=== PATIENT | male | born 1960 | race Caucasian/White ===

== ENCOUNTER 2019-07-27 11:04 | Inpatient (IN) | payer OTHER ==
[2019-07-27 12:25] VITALS: BMI 26.3
--- NOTE | 2019-07-27 12:56 | HP ---
CIWA Score Nausea/Vomitin-No Nausea/No Vomiting Muscle Tremors: 4-Moderate,w/Arms Extend Anxiety: 3 Agitation: 2 Paroxysmal Sweats: 1-Minimal Palms Moist Orientation: 0-Oriented Tacttile Disturbances: 0-None Auditory Disturbances: 0-None Visual Disturbances: 0-None Headache: 2-Mild CIWA-Ar Total Score: 12 - Admission Criteria OASAS Guidelines: Admission for Medically Managed Detox: Requires at least one of the followin. CIWA greater than 12 2. Seizures within the past 24 hours 3. Delirium tremens within the past 24 hours 4. Hallucinations within the past 24 hours 5. Acute intervention needed for co occurring medical disorder 6. Acute intervention needed for co occurring psychiatric disorder 7. Severe withdrawal that cannot be handled at a lower level of care (continued vomiting, continued diarrhea, abnormal vital signs) requiring intravenous medication and/or fluids 8. Admitting History and Physical - Admission Chief Complaint: " I want to get clean from alcohol. I am a methadone patient at [facility]." History of Present Illness: 59 year old male with opiate dependence on methadone program at [facility] but on voluntary detox. He also has alsochol dependence with withdrawals. His methadone dose there is 15mg. He admits that he is again using heroin 1 bag of heroin intranasally everyday now. He admits to relapsing for that. He is also [id number] beers daily and had a blackout 1 month ago. He has been in detox 3 times, the last one 1 year ago. He denies seizures upon withdrawal. Urine tox positive for MOP, MTD, and FEN. Brethalyzer was 0.oo but last use was yesterday afternoon therefore most likely out of his system. PMH: HCV+ but not yet treated. Psurg: None excep hernia repair Psych: Depression on no medications Patient is domiciled with sister. He feels he has support systems in place for recovery. - Smoking History Smoking history: Current every day smoker Have you smoked in the past 12 months: Yes Aproximately how many cigarettes per day: 7 Admission ROS [facility] Allergies/Adverse Reactions: Allergies Allergy/AdvReac Type Severity Reaction Status Date / Time No Known Allergies Allergy Verified 07/27/19 12:36 Exam Limitations: No Limitations - Ebola screening Have you traveled outside of the country in the last 21 days: No Have you had contact with anyone from an Ebola affected area: No Have you been sick,other than usual withdrawal symptoms: No Do you have a fever: No - Review of Systems Constitutional: Diaphoresis, Changes in sleep EENT: reports: No Symptoms Reported Respiratory: reports: No Symptoms reported Cardiac: reports: No Symptoms Reported GI: reports: No Symptoms Reported : reports: No Symptoms Reported Musculoskeletal: reports: No Symptoms Reported Integumentary: reports: No Symptoms Reported Neuro: reports: Headache Endocrine: reports: No Symptoms Reported Hematology: reports: No Symptoms Reported Psychiatric: reports: Judgement Intact, Orientated x3, Agitated, Anxious Other Systems: Reviewed and Negative Patient History - Patient Medical History Hx Asthma: No Hx Chronic Obstructive Pulmonary Disease (COPD): No Hx Cardiac Disorders: No Hx Hypertension: No Hx Seizures: No Hx Diabetes: No Hx Gastrointestinal Disorders: No Hx Genitourinary Disorders: No Hx Sexually Transmitted Disorders: No Hx Renal Disease (ESRD): No Hx Depression: Yes Hx Suicide Attempt: No Hx Schizophrenia: No - Patient Surgical History Past Surgical History: Yes Hx Neurologic Surgery: No Hx Cataract Extraction: No Hx Cardiac Surgery: No Hx Lung Surgery: No Hx Breast Surgery: No Hx Breast Biopsy: No Hx Abdominal Surgery: Yes (hernia repair) Hx Appendectomy: No Hx Cholecystectomy: No Hx Genitourinary Surgery: No Hx Section: No Hx Orthopedic Surgery: No Other Surgical History: Patint had mass removed from chest as a child - PPD History Previous Implant?: Yes Documented Results: Negative w/o proof Implanted On Prior [facility] Admission?: No Date: 02/11/19 (done at [facility]) Results: negative PPD to be Administered?: Yes - Smoking Cessation Smoking history: Current every day smoker Have you smoked in the past 12 months: Yes Aproximately how many cigarettes per day: 7 Hx Chewing Tobacco Use: No Initiated information on smoking cessation: Yes 'Breaking Loose' booklet given: 07/27/19 - Substances abused Heroin Substance route: Inhalation Frequency: 1-2 times per week Amount used: 1 bag Age of first use: 15 Date of last use: 07/26/19 Alcohol Substance route: Oral Frequency: Daily Amount used: 12 cans of Budweiser Age of first use: 17 Date of last use: 07/26/19 Admission Physical Exam BHS - Vital Signs Vital Signs: Vital Signs - 24 hr 07/27/19 12:21 Temperature 97.8 F Pulse Rate 88 Respiratory 11 Rate Blood Pressure 139/84 - Physical General Appearance: Yes: Mild Distress, Irritable, Sweating, Anxious HEENTM: Yes: EOMI, Hearing grossly Normal, Normal ENT Inspection, Normocephalic , Normal Voice, OLMAN, Pharynx Normal, Tm's normal Respiratory: Yes: Chest Non-Tender, Lungs Clear, Normal Breath Sounds, No Respiratory Distress, No Accessory Muscle Use Neck: Yes: No masses,lesions,Nodules, Supple, Trachea in good position Breast: Yes: Within Normal Limits Cardiology: Yes: Regular Rhythm, S1, S2, Tachycardia Abdominal: Yes: Non Tender, Soft, Increased Bowel Sounds, Protuberent, Tenderness (right upper quadrant). 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 NML intact, Fully Oriented, Alert, Motor Strength 5/5, Normal Mood/Affect, Normal Response Integumentary: Yes: Normal Color, Warm Lymphatic: Yes: Within Normal Limits - Diagnostic (1) Alcohol dependence with withdrawal Current Visit: Yes Status: Acute (2) Hepatitis C virus infection Current Visit: Yes Status: Acute (3) Opioid use disorder, mild, in early remission, on maintenance therapy Current Visit: Yes Status: Acute Cleared for Admission [facility] - Detox or Rehab [facility] Level of Care: Medically Managed Detox Regimen/Protocol: Librium Screened but not Admitted - Documentation of Visit Screened but not Admitted: No Breathalyzer - Breathalyzer Breathalyzer: 0 (last used yesterday) Urine Drug Screen - Test Device Lot number: [id number] Expiration date: 01/28/21 - Control Is test valid?: Yes - Results Drug screen NEGATIVE: No Urine drug screen results: FEN-Fentanyl, MOP-Opiates, MTD-Methadone Inpatient Rehab Admission - Rehab Decision to Admit Inpatient rehab admission?: No
[2019-07-27] MEDS ORDERED: chlordiazePOXIDE HCL 25 MG CAPSULE PO PRN (13:05)
[2019-07-27] MEDS ORDERED: MAGNESIUM HYDROX 2400MG/30ML ORAL SUSPENSION 30 ML CUP PO PRN (13:05)
[2019-07-27] MEDS ORDERED: IBUPROFEN 400 MG TABLET (FP) PO PRN (13:05)
[2019-07-27] MEDS ORDERED: BISMUTH SUBSALICYLATE 524 MG/30 ML UD PO PRN (13:05)
[2019-07-27] MEDS ORDERED: ACETAMINOPHEN 325 MG TABLET (FP) PO PRN (13:05)
[2019-07-27] MEDS ORDERED: MAGNESIUM CITRATE 300 ML BOTTLE PO PRN (13:05)
[2019-07-27] MEDS ORDERED: hydrOXYzine PAMOATE 25 MG CAPSULE (FP) PO PRN (13:05)
[2019-07-27] MEDS ORDERED: MAG HYDROX/AL HYDROX/SIMETH 30 ML UNIT-DOSE CUP PO PRN (13:05)
[2019-07-27] MEDS ORDERED: MENTHOL/PHENOL 1 EACH UD MM PRN (13:05)
[2019-07-27] MEDS: chlordiazePOXIDE HCL 25 MG CAPSULE PO SCH ×3 (14:12→22:24)
[2019-07-27] MEDS: NICOTINE 7 MG/24 HOURS TOPICAL PATCH TD SCH (14:12)
[2019-07-27 16:59] LABS: HEMATOCRIT 38.6 % (35.4-49); HEMOGLOBIN 13.2 GM/dL (11.7-16.9); MCH 34.3 pg (25.7-33.7); MCHC 34.1 g/dl (32.0-35.9); MEAN CELL VOLUME 100.7 fl (80-96); MEAN PLT VOLUME 13.4 fl (7.5-11.1); PLATELET COUNT 56 K/MM3 (134-434); RBC 3.83 M/mm3 (4.00-5.60); RDW 13.8 % (11.9-15.9); WHITE BLOOD COUNT 5.8 K/mm3 (4.0-10.0)
[2019-07-27 17:12] LABS: ALBUMIN 3.2 g/dl (3.4-5.0); BILIRUBIN,TOTAL 0.7 mg/dL (0.2-1); BLOOD UREA NITROGEN 10.4 mg/dL (7-18); CALCIUM 8.7 mg/dL (8.5-10.1); CREATININE 0.9 mg/dL (0.55-1.3); POTASSIUM 3.5 mmol/L (3.5-5.1)
[2019-07-27] MEDS: THIAMINE HCL 100 MG TABLET (FP) PO SCH (22:24)
[2019-07-27] MEDS: MELATONIN 5 MG TABLETS PO PRN (22:24)
[2019-07-28] MEDS: chlordiazePOXIDE HCL 25 MG CAPSULE PO SCH ×2 (05:18→10:01)
[2019-07-28] MEDS: METHADONE HCL 10 MG TABLET PO SCH (10:01)
[2019-07-28] MEDS: PRENATAL VITAMINS W/ FOLIC ACID TABLET (FP) PO SCH (10:01)
[2019-07-28] MEDS: NICOTINE 7 MG/24 HOURS TOPICAL PATCH TD SCH (10:01)
[2019-07-28] MEDS ORDERED: METHADONE HCL 10 MG TABLET PO ONE (10:47)
--- NOTE | 2019-07-28 10:57 | PN ---
[facility] CIWA - CIWA Score Nausea/Vomitin-No Nausea/No Vomiting Muscle Tremors: 4-Moderate,w/Arms Extend Anxiety: 3 Agitation: 2 Paroxysmal Sweats: 1-Minimal Palms Moist Orientation: 0-Oriented Tacttile Disturbances: 0-None Auditory Disturbances: 0-None Visual Disturbances: 1-Very Mild Sensitivity Headache: 0-None Present CIWA-Ar Total Score: 11 S Progress Note (SOAP) Subjective: 59 years old male admitted on 07/27/19 for alcohol withdrawal sx management treating with librium detox regiment feeling ok today ambulating on hallway ate breakfast in day room social with peers patient is motivated to maintain sober Objective: 07/28/19 10:59 Vital Signs Temperature 97.1 F L 07/28/19 09:02 Pulse Rate 74 07/28/19 09:02 Respiratory Rate 18 07/28/19 09:02 Blood Pressure 108/74 07/28/19 09:02 O2 Sat by Pulse Oximetry (%) Laboratory Last Values WBC 5.8 K/mm3 (4.0-10.0) 07/27/19 12:50 RBC 3.83 M/mm3 (4.00-5.60) L 07/27/19 12:50 Hgb 13.2 GM/dL (11.7-16.9) 07/27/19 12:50 Hct 38.6 % (35.4-49) 07/27/19 12:50 MCV 100.7 fl (80-96) H 07/27/19 12:50 MCH 34.3 pg (25.7-33.7) H 07/27/19 12:50 MCHC 34.1 g/dl (32.0-35.9) 07/27/19 12:50 RDW 13.8 % (11.9-15.9) 07/27/19 12:50 Plt Count 56 K/MM3 (134-434) L 07/27/19 12:50 MPV 13.4 fl (7.5-11.1) H 07/27/19 12:50 Sodium 138 mmol/L (136-145) 07/27/19 12:50 Potassium 3.5 mmol/L (3.5-5.1) 07/27/19 12:50 Chloride 106 mmol/L (98-107) 07/27/19 12:50 Carbon Dioxide 26 mmol/L (21-32) 07/27/19 12:50 Anion Gap 7 MMOL/L (8-16) L 07/27/19 12:50 BUN 10.4 mg/dL (7-18) 07/27/19 12:50 Creatinine 0.9 mg/dL (0.55-1.3) 07/27/19 12:50 Est GFR (CKD-EPI)AfAm 108.73 07/27/19 12:50 Est GFR (CKD-EPI)NonAf 93.82 07/27/19 12:50 Random Glucose 125 mg/dL (74-106) H 07/27/19 12:50 Calcium 8.7 mg/dL (8.5-10.1) 07/27/19 12:50 Total Bilirubin 0.7 mg/dL (0.2-1) 07/27/19 12:50 AST 110 U/L (15-37) H 07/27/19 12:50 ALT 119 U/L (13-61) H 07/27/19 12:50 Alkaline Phosphatase 115 U/L (45-117) 07/27/19 12:50 Total Protein 8.0 g/dl (6.4-8.2) 07/27/19 12:50 Albumin 3.2 g/dl (3.4-5.0) L 07/27/19 12:50 RPR Titer Nonreactive (NONREACTIVE) 07/27/19 12:50 lab noted 07/28/19 11:11 ast elevation patient agrees to take methadone 10mg po instead of 11 mg that [facility] pharmacy can not accommodate patient agrees to take ativan detox regimen Assessment: 07/28/19 11:13 alcohol withdrawal Plan: ativan regiment
[2019-07-28] MEDS ORDERED: LORazepam 1 MG TABLET PO PRN (11:26)
[2019-07-28] MEDS ORDERED: FLU VACCINE QUAD 60 MCG/0.5 ML (MDV 19-20) IM ONE (12:00)
[2019-07-28] MEDS: ACETAMINOPHEN 325 MG TABLET (FP) PO PRN (12:23)
[2019-07-28] MEDS: LORazepam 1 MG TABLET PO SCH ×2 (13:59→22:04)
[2019-07-28] MEDS: NICOTINE POLACRILEX 2 MG GUM BUC PRN (17:35)
[2019-07-28] MEDS: THIAMINE HCL 100 MG TABLET (FP) PO SCH (22:04)
[2019-07-28] MEDS: MELATONIN 5 MG TABLETS PO PRN (22:04)
[2019-07-29] MEDS ORDERED: chlordiazePOXIDE HCL 25 MG CAPSULE PO SCH (05:00)
[2019-07-29] MEDS: LORazepam 0.5 MG TABLET PO SCH ×4 (05:50→22:28)
[2019-07-29] MEDS: NICOTINE 7 MG/24 HOURS TOPICAL PATCH TD SCH (10:04)
[2019-07-29] MEDS: METHADONE HCL 10 MG TABLET PO SCH (10:04)
[2019-07-29] MEDS: PRENATAL VITAMINS W/ FOLIC ACID TABLET (FP) PO SCH (10:04)
--- NOTE | 2019-07-29 11:31 | PN ---
[facility] CIWA - CIWA Score Nausea/Vomitin-Mild Nausea/No Vomiting Muscle Tremors: 2 Anxiety: 2 Agitation: 2 Paroxysmal Sweats: 1-Minimal Palms Moist Orientation: 0-Oriented Tacttile Disturbances: 0-None Auditory Disturbances: 0-None Visual Disturbances: 1-Very Mild Sensitivity Headache: 0-None Present CIWA-Ar Total Score: 9 S Progress Note (SOAP) Subjective: 59 years old male admitted on 07/21/19 for alcohol withdrawal sx management treating with ativan detox regiment feeling ok today ate breakfast in day room social with peers less tremor mild anxitey Objective: 07/29/19 11:35 Vital Signs Temperature 97.0 F L 07/29/19 08:32 Pulse Rate 93 H 07/29/19 08:32 Respiratory Rate 20 07/29/19 08:32 Blood Pressure 114/74 07/29/19 08:32 O2 Sat by Pulse Oximetry (%) Laboratory Last Values WBC 5.8 K/mm3 (4.0-10.0) 07/27/19 12:50 RBC 3.83 M/mm3 (4.00-5.60) L 07/27/19 12:50 Hgb 13.2 GM/dL (11.7-16.9) 07/27/19 12:50 Hct 38.6 % (35.4-49) 07/27/19 12:50 MCV 100.7 fl (80-96) H 07/27/19 12:50 MCH 34.3 pg (25.7-33.7) H 07/27/19 12:50 MCHC 34.1 g/dl (32.0-35.9) 07/27/19 12:50 RDW 13.8 % (11.9-15.9) 07/27/19 12:50 Plt Count 56 K/MM3 (134-434) L 07/27/19 12:50 MPV 13.4 fl (7.5-11.1) H 07/27/19 12:50 Sodium 138 mmol/L (136-145) 07/27/19 12:50 Potassium 3.5 mmol/L (3.5-5.1) 07/27/19 12:50 Chloride 106 mmol/L (98-107) 07/27/19 12:50 Carbon Dioxide 26 mmol/L (21-32) 07/27/19 12:50 Anion Gap 7 MMOL/L (8-16) L 07/27/19 12:50 BUN 10.4 mg/dL (7-18) 07/27/19 12:50 Creatinine 0.9 mg/dL (0.55-1.3) 07/27/19 12:50 Est GFR (CKD-EPI)AfAm 108.73 07/27/19 12:50 Est GFR (CKD-EPI)NonAf 93.82 07/27/19 12:50 Random Glucose 125 mg/dL (74-106) H 07/27/19 12:50 Calcium 8.7 mg/dL (8.5-10.1) 07/27/19 12:50 Total Bilirubin 0.7 mg/dL (0.2-1) 07/27/19 12:50 AST 110 U/L (15-37) H 07/27/19 12:50 ALT 119 U/L (13-61) H 07/27/19 12:50 Alkaline Phosphatase 115 U/L (45-117) 07/27/19 12:50 Total Protein 8.0 g/dl (6.4-8.2) 07/27/19 12:50 Albumin 3.2 g/dl (3.4-5.0) L 07/27/19 12:50 RPR Titer Nonreactive (NONREACTIVE) 07/27/19 12:50 lab noted low plt discontinue motrin ast elevation ativan detox regimen 07/29/19 11:36 Assessment: 07/29/19 11:36 alcohol withdrawal Plan: ativan regiment
[2019-07-29] MEDS: THIAMINE HCL 100 MG TABLET (FP) PO SCH (22:27)
[2019-07-30] MEDS ORDERED: chlordiazePOXIDE HCL 10 MG CAPSULE PO PRN
[2019-07-30] MEDS ORDERED: LORazepam 1 MG TABLET PO PRN (00:01)
[2019-07-30] MEDS ORDERED: chlordiazePOXIDE HCL 10 MG CAPSULE PO SCH (05:00)
[2019-07-30] MEDS: LORazepam 0.5 MG TABLET PO SCH ×3 (05:58→22:17)
[2019-07-30] MEDS: METHADONE HCL 10 MG TABLET PO SCH (10:06)
[2019-07-30] MEDS: PRENATAL VITAMINS W/ FOLIC ACID TABLET (FP) PO SCH (10:07)
[2019-07-30] MEDS: NICOTINE 7 MG/24 HOURS TOPICAL PATCH TD SCH (10:07)
--- NOTE | 2019-07-30 10:45 | PN ---
[facility] CIWA - CIWA Score Nausea/Vomitin-No Nausea/No Vomiting Muscle Tremors: 2 Anxiety: 2 Agitation: 2 Paroxysmal Sweats: 1-Minimal Palms Moist Orientation: 0-Oriented Tacttile Disturbances: 0-None Auditory Disturbances: 0-None Visual Disturbances: 1-Very Mild Sensitivity Headache: 0-None Present CIWA-Ar Total Score: 8 S Progress Note (SOAP) Subjective: 59 years old male admitted on 07/27/19 for alcohol withdrawal sx management treating with ativan detox regiment patient reports doing ok today ambulating with cane steady gait patient goes to groups and meetings when possible and determines to maintain sober Objective: 07/30/19 10:46 Vital Signs Temperature 97.0 F L 07/30/19 08:51 Pulse Rate 89 07/30/19 08:51 Respiratory Rate 18 07/30/19 08:51 Blood Pressure 106/74 07/30/19 08:51 O2 Sat by Pulse Oximetry (%) Laboratory Last Values WBC 5.8 K/mm3 (4.0-10.0) 07/27/19 12:50 RBC 3.83 M/mm3 (4.00-5.60) L 07/27/19 12:50 Hgb 13.2 GM/dL (11.7-16.9) 07/27/19 12:50 Hct 38.6 % (35.4-49) 07/27/19 12:50 MCV 100.7 fl (80-96) H 07/27/19 12:50 MCH 34.3 pg (25.7-33.7) H 07/27/19 12:50 MCHC 34.1 g/dl (32.0-35.9) 07/27/19 12:50 RDW 13.8 % (11.9-15.9) 07/27/19 12:50 Plt Count 56 K/MM3 (134-434) L 07/27/19 12:50 MPV 13.4 fl (7.5-11.1) H 07/27/19 12:50 Sodium 138 mmol/L (136-145) 07/27/19 12:50 Potassium 3.5 mmol/L (3.5-5.1) 07/27/19 12:50 Chloride 106 mmol/L (98-107) 07/27/19 12:50 Carbon Dioxide 26 mmol/L (21-32) 07/27/19 12:50 Anion Gap 7 MMOL/L (8-16) L 07/27/19 12:50 BUN 10.4 mg/dL (7-18) 07/27/19 12:50 Creatinine 0.9 mg/dL (0.55-1.3) 07/27/19 12:50 Est GFR (CKD-EPI)AfAm 108.73 07/27/19 12:50 Est GFR (CKD-EPI)NonAf 93.82 07/27/19 12:50 Random Glucose 125 mg/dL (74-106) H 07/27/19 12:50 Calcium 8.7 mg/dL (8.5-10.1) 07/27/19 12:50 Total Bilirubin 0.7 mg/dL (0.2-1) 07/27/19 12:50 AST 110 U/L (15-37) H 07/27/19 12:50 ALT 119 U/L (13-61) H 07/27/19 12:50 Alkaline Phosphatase 115 U/L (45-117) 07/27/19 12:50 Total Protein 8.0 g/dl (6.4-8.2) 07/27/19 12:50 Albumin 3.2 g/dl (3.4-5.0) L 07/27/19 12:50 RPR Titer Nonreactive (NONREACTIVE) 07/27/19 12:50 lab noted Assessment: 07/30/19 10:47 alcohol withdrawal acknowledged alcohol induced ast elevation Plan: ativan regiment
[2019-07-30] MEDS: ACETAMINOPHEN 325 MG TABLET (FP) PO PRN (11:45)
[2019-07-30] MEDS: NICOTINE POLACRILEX 2 MG GUM BUC PRN ×2 (13:08→15:59)
[2019-07-30] MEDS: METHOCARBAMOL 500 MG TABLET PO PRN (17:33)
[2019-07-30] MEDS: THIAMINE HCL 100 MG TABLET (FP) PO SCH (22:17)
[2019-07-30] MEDS: MELATONIN 5 MG TABLETS PO PRN (22:17)
[2019-07-31] MEDS ORDERED: chlordiazePOXIDE HCL 10 MG CAPSULE PO SCH (05:00)
[2019-07-31] MEDS: LORazepam 0.5 MG TABLET PO SCH ×2 (05:28→10:11)
[2019-07-31] MEDS: METHADONE HCL 10 MG TABLET PO SCH (10:11)
[2019-07-31] MEDS: PRENATAL VITAMINS W/ FOLIC ACID TABLET (FP) PO SCH (10:11)
[2019-07-31] MEDS: NICOTINE 7 MG/24 HOURS TOPICAL PATCH TD SCH (10:13)
--- NOTE | 2019-07-31 11:23 | PN ---
[facility] CIWA - CIWA Score Nausea/Vomitin-No Nausea/No Vomiting Muscle Tremors: 2 Anxiety: 1-Mildly Anxious Agitation: 2 Paroxysmal Sweats: No Perspiration Orientation: 0-Oriented Tacttile Disturbances: 0-None Auditory Disturbances: 0-None Visual Disturbances: 0-None Headache: 0-None Present CIWA-Ar Total Score: 5 BHS Progress Note (SOAP) Subjective: Vitals: BP: 100/60 P:84 R:20 T:98.2 Laboratory 07/27/19 07/27/19 07/27/19 12:50 12:50 12:50 WBC 5.8 K/mm3 K/mm3 (4.0-10.0) RBC 3.83 M/mm3 L M/mm3 (4.00-5.60) Hgb 13.2 GM/dL GM/dL (11.7-16.9) Hct 38.6 % % (35.4-49) MCV 100.7 fl H fl (80-96) MCH 34.3 pg H pg (25.7-33.7) MCHC 34.1 g/dl g/dl (32.0-35.9) RDW 13.8 % % (11.9-15.9) Plt Count 56 K/MM3 L K/MM3 (134-434) MPV 13.4 fl H fl (7.5-11.1) Sodium 138 mmol/L mmol/L (136-145) Potassium 3.5 mmol/L mmol/L (3.5-5.1) Chloride 106 mmol/L mmol/L (98-107) Carbon Dioxide 26 mmol/L mmol/L (21-32) Anion Gap 7 MMOL/L L MMOL/L (8-16) BUN 10.4 mg/dL mg/dL (7-18) Creatinine 0.9 mg/dL mg/dL (0.55-1.3) Est GFR (CKD-EPI)AfAm 108.73 Est GFR (CKD-EPI)NonAf 93.82 Random Glucose 125 mg/dL H mg/dL (74-106) Calcium 8.7 mg/dL mg/dL (8.5-10.1) Total Bilirubin 0.7 mg/dL mg/dL (0.2-1) AST 110 U/L H U/L (15-37) ALT 119 U/L H U/L (13-61) Alkaline Phosphatase 115 U/L U/L (45-117) Total Protein 8.0 g/dl g/dl (6.4-8.2) Albumin 3.2 g/dl L g/dl (3.4-5.0) RPR Titer Nonreactive (NONREACTIVE) Objective: 07/31/19 11:23 Laboratory 07/27/19 07/27/19 07/27/19 12:50 12:50 12:50 WBC 5.8 K/mm3 K/mm3 (4.0-10.0) RBC 3.83 M/mm3 L M/mm3 (4.00-5.60) Hgb 13.2 GM/dL GM/dL (11.7-16.9) Hct 38.6 % % (35.4-49) MCV 100.7 fl H fl (80-96) MCH 34.3 pg H pg (25.7-33.7) MCHC 34.1 g/dl g/dl (32.0-35.9) RDW 13.8 % % (11.9-15.9) Plt Count 56 K/MM3 L K/MM3 (134-434) MPV 13.4 fl H fl (7.5-11.1) Sodium 138 mmol/L mmol/L (136-145) Potassium 3.5 mmol/L mmol/L (3.5-5.1) Chloride 106 mmol/L mmol/L (98-107) Carbon Dioxide 26 mmol/L mmol/L (21-32) Anion Gap 7 MMOL/L L MMOL/L (8-16) BUN 10.4 mg/dL mg/dL (7-18) Creatinine 0.9 mg/dL mg/dL (0.55-1.3) Est GFR (CKD-EPI)AfAm 108.73 Est GFR (CKD-EPI)NonAf 93.82 Random Glucose 125 mg/dL H mg/dL (74-106) Calcium 8.7 mg/dL mg/dL (8.5-10.1) Total Bilirubin 0.7 mg/dL mg/dL (0.2-1) AST 110 U/L H U/L (15-37) ALT 119 U/L H U/L (13-61) Alkaline Phosphatase 115 U/L U/L (45-117) Total Protein 8.0 g/dl g/dl (6.4-8.2) Albumin 3.2 g/dl L g/dl (3.4-5.0) RPR Titer Nonreactive (NONREACTIVE) 07/31/19 11:25 Assessment: 07/31/19 11:25 Patient seen ambulating and comfortable. Minimal withdrawal complaints. 1. Alcohol dependence with minimal withdrawals now 2. Mild Transaminitis due to alcohol. Plan: 1. Continue Librium Detox protocol 2. Continue hydration and observation 3. Discharge planning and disposition
[2019-07-31] MEDS: NICOTINE POLACRILEX 2 MG GUM BUC PRN (11:26)
[2019-07-31] MEDS: ACETAMINOPHEN 325 MG TABLET (FP) PO PRN (17:41)
[2019-07-31] MEDS: METHOCARBAMOL 500 MG TABLET PO PRN (17:42)
[2019-07-31] MEDS: MELATONIN 5 MG TABLETS PO PRN (22:08)
[2019-07-31] MEDS: THIAMINE HCL 100 MG TABLET (FP) PO SCH (22:08)
[2019-08-01] MEDS ORDERED: LORazepam 0.5 MG TABLET PO ONE (05:00)
[2019-08-01] MEDS ORDERED: chlordiazePOXIDE HCL 10 MG CAPSULE PO ONE (05:00)
[2019-08-01] MEDS: ACETAMINOPHEN 325 MG TABLET (FP) PO PRN (09:17)
[2019-08-01 09:29] VITALS: BP 106/65; PULSE 73; TEMP 97.6
[2019-08-01] MEDS: PRENATAL VITAMINS W/ FOLIC ACID TABLET (FP) PO SCH (10:12)
[2019-08-01] MEDS: NICOTINE 7 MG/24 HOURS TOPICAL PATCH TD SCH (10:12)
[2019-08-01] MEDS: METHADONE HCL 10 MG TABLET PO SCH (10:12)
--- NOTE | 2019-08-01 15:04 | DS ---
[facility] Detox Discharge Summary Admission Date: 07/27/19 Discharge Date: 08/01/19 - History Present History: Alcohol Dependence, Opioid Dependence Additional Comments: As per H&P: "59year old male with opiate dependence on methadone program at [facility] but on voluntary detox. He also has alsochol dependence with withdrawals. His methadone dose there is 15mg. He admits that he is again using heroin 1 bag of heroin intranasally everyday now. He admits to relapsing for that. He is also [id number] beers daily and had a blackout 1 month ago. He has been in detox 3 times, the last one 1 year ago. He denies seizures upon withdrawal". Pt is medically cleared and discharge today. Pt completed the detox protocol. Pt is encouraged to follow-up with an outpatient CD program and also to follow- up with his pmd. Pt verbalized understanding of the information given. Pt is alert and oriented x3 and in no acute respiratory distress. Pertinent Past History: h/o heroin and alcohol use disorder. - Physical Exam Results Vital Signs: Vital Signs Temperature 97.6 F 08/01/19 08:34 Pulse Rate 73 08/01/19 08:34 Respiratory Rate 18 08/01/19 08:34 Blood Pressure 106/65 08/01/19 08:34 O2 Sat by Pulse Oximetry (%) Vital Signs 08/01/19 08:34 Temperature 97.6 F Pulse Rate 73 Respiratory 18 Rate Blood Pressure 106/65 Laboratory Last Values WBC 5.8 K/mm3 (4.0-10.0) 07/27/19 12:50 RBC 3.83 M/mm3 (4.00-5.60) L 07/27/19 12:50 Hgb 13.2 GM/dL (11.7-16.9) 07/27/19 12:50 Hct 38.6 % (35.4-49) 07/27/19 12:50 MCV 100.7 fl (80-96) H 07/27/19 12:50 MCH 34.3 pg (25.7-33.7) H 07/27/19 12:50 MCHC 34.1 g/dl (32.0-35.9) 07/27/19 12:50 RDW 13.8 % (11.9-15.9) 07/27/19 12:50 Plt Count 56 K/MM3 (134-434) L 07/27/19 12:50 MPV 13.4 fl (7.5-11.1) H 07/27/19 12:50 Sodium 138 mmol/L (136-145) 07/27/19 12:50 Potassium 3.5 mmol/L (3.5-5.1) 07/27/19 12:50 Chloride 106 mmol/L (98-107) 07/27/19 12:50 Carbon Dioxide 26 mmol/L (21-32) 07/27/19 12:50 Anion Gap 7 MMOL/L (8-16) L 07/27/19 12:50 BUN 10.4 mg/dL (7-18) 07/27/19 12:50 Creatinine 0.9 mg/dL (0.55-1.3) 07/27/19 12:50 Est GFR (CKD-EPI)AfAm 108.73 07/27/19 12:50 Est GFR (CKD-EPI)NonAf 93.82 07/27/19 12:50 Random Glucose 125 mg/dL (74-106) H 07/27/19 12:50 Calcium 8.7 mg/dL (8.5-10.1) 07/27/19 12:50 Total Bilirubin 0.7 mg/dL (0.2-1) 07/27/19 12:50 AST 110 U/L (15-37) H 07/27/19 12:50 ALT 119 U/L (13-61) H 07/27/19 12:50 Alkaline Phosphatase 115 U/L (45-117) 07/27/19 12:50 Total Protein 8.0 g/dl (6.4-8.2) 07/27/19 12:50 Albumin 3.2 g/dl (3.4-5.0) L 07/27/19 12:50 RPR Titer Nonreactive (NONREACTIVE) 07/27/19 12:50 Labs noted. Pertinent Admission Physical Exam Findings: withdrawal symptoms. - Treatment Hospital Course: Detox Protocol Followed, Detoxed Safely, Responded well, Discharged Condition Good - Medication Discharge Medications: Ambulatory Orders Zolpidem Tartrate [Ambien] 10 mg PO HS PRN 07/27/19 - Diagnosis (1) Alcohol dependence with withdrawal Status: Acute (2) Hepatitis C virus infection Status: Acute (3) Opioid use disorder, mild, in early remission, on maintenance therapy Status: Acute - AMA Did Patient Leave Against Medical Advice: No
== END 2019-08-01 12:24 | disposition home or self-care (01) | DRG 773 ==
LOC: YASAS 11:04 → Y3N 13:00
PROVIDERS: ADMIT Allergy & Immunology; ATTEND Allergy & Immunology
PROC: HZ2ZZZZ Detoxification Services for Substance Abuse Treatment (ICD-10-PCS; principal; 2019-07-27)
DX: F10.230 Alcohol dependence with withdrawal, uncomplicated (principal); F11.20 Opioid dependence, uncomplicated; F17.210 Nicotine dependence, cigarettes, uncomplicated; B18.2 Chronic viral hepatitis C; R74.0 Nonspecific elevation of levels of transaminase and lactic acid dehydrogenase [LDH]; R00.0 Tachycardia, unspecified
CPT/HCPCS: 36415; 80053; 85027; 86593; G0008; Q2036